=== PATIENT | male | born 1945 | race Caucasian/White ===

== ENCOUNTER 2016-07-03 06:25 | Outpatient (CLI) | payer MEDICARE, OTHER ==
[~2016-07-03] VITALS: Ht 185.4 cm; Wt 76.4 kg
--- NOTE | ~2016-07-03 | HEMODYNAMI ---
PATIENT:CARL FLORES MEDICAL RECORD: [id number] : 43 LOCATION:D.OPS ADMISSION DATE: 07/03/16 Generatedon:07/05/201611:01 Patient name: CARL FLORES Patient #: [id number] SSN: D OB: 1945 Date of study: 07/03/2016 Page: Of Hemodynamic Procedure Report Patient Data Patient Demographics Procedure consent was obtained First Name: CARL Gender: Male Last Name: SANDRA : 1945 Middle Initial: D Age: 71 year(s) Patient #: [id number] Race: Additional ID: [id number] Contact details [address]: [address] [place] [address] State: [place] City: [place] Zip code: [address] Past Medical History History of disease Date Diagnosis Comments CAD Peripheral vascular disease Allergies Allergen Reaction Date Comments Reported Other allergy 08/13/2014 Lisinopril Iodine 12/31/2014 Contrast 07/03/2016 Admission Admission Data Admission Date: 07/03/2016 Admission Time: 6:25 Weight (lbs.): 168 Weight (kg.): 76.2 Procedure Procedure Types Cath Procedure Peripheral Cath Diagnostic Procedure Procedure Description Procedure Date Procedure Date: 07/03/2016 Procedure Start Time: 10:01 Procedure Staff Name Function Teresa Miller RT Monitor Albert Wayne RT Scrub Karina Marks RN Nurse Bunny Powell MD Performing Physician Tami Phipps RT Monitor Procedure Data Cath Procedure Fluoroscopy Diagnostic fluoroscopy Total fluoroscopy Time: 8 time: 8 min min Diagnostic fluoroscopy Total fluoroscopy dose: dose: 1329.95 mGy 1329.95 mGy Contrast Material Contrast Material Type Amount (ml) Isovue 300 155 Entry Location Entry Primary Successful Side Size Upsize Upsize Entry Closure Succes sful Closure Location (Fr) 1 (Fr) 2 (Fr) Remarks Device Remarks Femoral Left 5 Fr artery Femoral Exoseal artery Procedure Medications Medication Administration Route Dosage Oxygen NC 3 l/min Heparin Flush Bag added to field 3 bags (1000units/500ml NS) Lidocaine 1% added to field 20 Versed I.V. 1 mg Fentanyl I.V. 50 mcg Versed I.V. 1 mg Fentanyl I.V. 50 mcg Heparin Bolus I.V. 5000 units Versed I.V. 0.5 mg Fentanyl I.V. 25 mcg Heparin Bolus I.V. 2000 units Hemodynamics Rest Heart Rate: 73 (bpm) Snapshots Pre Cath Intra NCS Post Cath Vital Signs Time Heart Resp SPO2 NIBP (mmHg) Rhythm Pain Sedation Rate (ipm) (%) Status Level (bpm) 9:34:40 73 16 100 144/74(120) NSR 0 (11) 10(A) , No pain 9:38:52 77 17 100 153/86(121) NSR 0 (11) 10(A) , No pain 9:43:10 81 17 100 139/77(104) NSR 0 (11) 10(A) , No pain 9:47:22 82 18 100 142/78(106) NSR 0 (11) 10(A) , No pain 9:51:38 79 18 100 156/75(150) NSR 0 (11) 10(A) , No pain 9:55:54 77 15 100 136/73(100) NSR 0 (11) 10(A) , No pain 10:00:06 84 23 99 124/77(97) NSR 0 (11) 10(A) , No pain 10:04:14 72 17 100 133/76(106) NSR 0 (11) 9(A) , No pain 10:08:24 78 18 100 135/78(111) NSR 0 (11) 9(A) , No pain 10:12:36 77 19 100 131/75(99) NSR 0 (11) 9(A) , No pain 10:16:46 74 18 99 131/73(93) NSR 0 (11) 9(A) , No pain 10:20:58 84 20 100 135/70(92) NSR 0 (11) 9(A) , No pain 10:25:08 79 18 100 127/78(101) NSR 0 (11) 9(A) , No pain 10:29:18 80 19 100 136/70(107) NSR 0 (11) 9(A) , No pain 10:33:30 77 19 100 134/77(99) NSR 0 (11) 9(A) , No pain 10:37:42 79 19 100 131/73(97) NSR 0 (11) 9(A) , No pain 10:41:51 76 19 100 134/75(95) NSR 0 (11) 9(A) , No pain 10:46:05 75 18 100 133/68(97) NSR 0 (11) 9(A) , No pain 10:50:15 84 17 99 134/75(97) NSR 0 (11) 9(A) , No pain 10:54:25 78 19 100 132/81(104) NSR 0 (11) 9(A) , No pain 10:58:37 83 18 99 133/73(108) NSR 0 (11) 9(A) , No pain 11:02:47 73 19 99 134/74(102) NSR 0 (11) 9(A) , No pain 11:06:59 77 17 100 135/74(107) NSR 0 (11) 9(A) , No pain 11:11:11 80 18 100 131/74(101) NSR 0 (11) 9(A) , No pain 11:15:21 73 19 100 133/73(111) NSR 0 (11) 9(A) , No pain 11:19:33 75 18 100 127/75(100) NSR 0 (11) 9(A) , No pain 11:23:40 83 19 100 138/75(101) NSR 0 (11) 9(A) , No pain 11:27:50 84 18 100 142/83(118) NSR 0 (11) 9(A) , No pain 11:32:00 81 18 100 148/91(113) NSR 0 (11) 9(A) , No pain 11:36:14 85 11 100 160/81(123) NSR 0 (11) 9(A) , No pain Medications Time Medication Route Dose Verified Delivered Reason Notes Effe ctiveness by by 9:45:16 Oxygen NC 3 Karina Karina used for l/min Selina Selina radar systems engineer RN 9:45:28 Heparin Flush added 3 Karina Karina used for Bag to bags Selina Selina procedure (1000units/500ml field RN RN NS) 9:45:36 Lidocaine 1% added 20ml Karina Karina used for to vial Selina Selina procedure field RN RN 10:02:26 Versed I.V. 1 mg Karina Karina for Selina Selina sedation RN RN 10:02:32 Fentanyl I.V. 50 Karina Karina for mcg Selina Selina sedation RN RN 10:08:23 Versed I.V. 1 mg Karina Karina for Selina Selina sedation RN RN 10:08:31 Fentanyl I.V. 50 Karina Karina for mcg Selina Selina sedation RN RN 10:31:47 Heparin Bolus I.V. 5000 Karina Karina Per units Selina Selina physician RN RN 10:54:47 Versed I.V. 0.5 Karina Karina for mg Selina Selina sedation RN RN 10:54:52 Fentanyl I.V. 25 Karina Karina for mcg Selina Selina sedation RN RN 11:15:29 Heparin Bolus I.V. 2000 Karina Karina Per units Selina Selina physician RN special client bus driver Log Time Note 9:24:03 Patient Weight : 168 lbs 9:24:54 Time tracking: Regular hours 9:25:03 Plan of Care:Hemodynamics will remain stable., Cardiac rhythm will remain stable., Comfort level will be maintained., Respiratory function will remain adequate., Patient/ family verbilizes understanding of procedure., Procedure tolerated without complication., Recovers from procedure without complications.. 9:25:11 Patient received from Outpatients to IR Alert and oriented. Tansferred to table in Supine position. 9:25:14 Correct patient and procedure confirmed by team. 9:25:18 Signed procedure consent form obtained from patient. 9:25:20 - 9:25:40 H&P Date Dictated: 07/03/2016 Within 30 days and on chart.. 9:26:49 Pre-procedure instructions explained to patient. 9:26:50 Pre-procedure instructions explained to patient. 9:26:52 Family in waiting room. 9:26:54 Patient NPO since Midnight. 9:27:05 Patient allergic to Contrast 9:27:18 Is the patient allergic to Iodine/contrast media? Yes. 9:27:24 Was the patient premedicated? Yes 9:27:29 Is patient on blood thinner?Yes 9:27:47 ACC The patient was administered the following blood thiners within the last 24 hours: ACCEffient 9:27:55 Patient diabetic? No. 9:28:00 - 9:28:01 ----Pre-sedation anethsthesia assessment.---- 9:28:05 Previous problem with sedation/anesthesia? No ? 9:28:25 Snore? Yes 9:28:28 Sleep apnea? No 9:28:32 Deviated septum? No 9:28:34 Opens mouth fully? Yes 9:28:36 Sticks out tongue? Yes 9:28:40 Airway obstruction? No ? 9:28:46 Dentures? Yes SECURED 9::57 Pre procedure: right dorsailis pedis pulse Doppler 9:29:01 Pre procedure: right posterior tibial pulse Doppler 9:29:05 Pre procedure: left dorsailis pedis pulse Doppler 9:29:11 Pre procedure: left posterior tibial pulse Doppler 9:29:23 IV patent on arrival in left forearm with 0.9% NaCl at KVO. 9:29:32 - 9:30:10 Use device set IR Diagnostic 9:30:23 Sterile Angiographic Pack opened to sterile field. 9:30:24 Bag Decanter opened to sterile field. 9:30:26 Acist Manifold opened to sterile field. :: Acist Hand Control opened to sterile field. :: Acist Syringe opened to sterile field. :32: Cook BENTSON 145cm guide wire opened to sterile field. 9:32:11 Micropuncture VSI 4FR kit opened to sterile field. 9:33:22 - : Vital chart was started : ECG and BP/O2 sat monitors applied to patient. : Baseline sample Acquired. : Full Disclosure recording started 9:33:31 - 9:45:16 Oxygen 3 l/min NC was given by Karina Marks RN; used for procedure; :45:28 Heparin Flush Bag (1000units/500ml NS) 3 bags added to field was given by Karina Marks RN; used for procedure; 9:45:36 Lidocaine 1% 20ml vial added to field was given by Karina Marks RN; used for procedure; 9:58:02 Physician arrived 10:00:44 --------ALL STOP TIME OUT------ 10:00:45 Final Timeout: patient, procedure, and site verified with staff and physician. All members of the team are in agreement. 10:01:19 Physical assessment completed. ASA score P 2 - A patient with mild systemic disease as per Bunny Powell MD. 10:01:25 Sedation plan: IV Moderate Sedation Versed, Fentanyl 10:01:37 Procedure started. 10:01:47 Local anesthetic to left femerol artery with Lidocaine 1% by Bunny Powell MD.INITIAL ACCESS ONLY 10:01:52 Arterial access obtained using ultrasound guidance. 10:02:26 Versed 1 mg I.V. was given by Karina Marks RN; for sedation; 10:02:32 Fentanyl 50 mcg I.V. was given by Karina Marks RN; for sedation; 10:03:38 [place] Sci Amplatz Super Stiff 75CM guide wire opened to sterile field. 10:03:39 Terumo TORQUE DEVICE PLASTIC .038 opened to sterile field. 10:03:40 Terumo ANGLE 180L glide wire opened to sterile field. 10:03:41 Terumo 5FR ANGLED 65CM glide catheter opened to sterile field. 10:04:33 A 5 Fr sheath was inserted into the Left Femoral artery 10:08:23 Versed 1 mg I.V. was given by Karina Marks RN; for sedation; 10:08:31 Fentanyl 50 mcg I.V. was given by Karina Marks RN; for sedation; 10:23:05 Cordis 6Fr Brite Tip 35cm Sheath opened to sterile field. 10:23:16 Cook GUILLORY 260 guide wire opened to sterile field. 10:25:14 Cordis SMART 9 X 40 X 120 stent was deployed across Undefined1 . 10:25:30 BasixTOUCH Inflation Syringe opened to sterile field. 10:31:47 Heparin Bolus 5000 units I.V. was given by Karina Marks RN; Per physician; 10:39:39 Inflation number: 1 A Cordis Powerflex Pro 8.0 x 40 x 80cm balloon was prepped and advanced across the Undefined1, then inflated to 12 OSWALD for 0:20 (min:sec). 10:47:06 Inflation number: 2 A Cordis Powerflex Pro 9.0 x 40 x 80cm balloon was prepped and advanced across the Undefined1, then inflated to 12 OSWALD for 0:20 (min:sec). 10:53:02 Inflation number: 3 A Cordis Powerflex Pro 9.0 x 40 x 80cm balloon was prepped and advanced across the Undefined1, then inflated to 12 OSWALD for 0:31 (min:sec). 10:54:47 Versed 0.5 mg I.V. was given by Karina Marks RN; for sedation; 10:54:52 Fentanyl 25 mcg I.V. was given by Karina Marks RN; for sedation; 11:06:15 Cordis SMART 10 X 40 X 120 stent was deployed across Undefined1 . 11:15:00 Inflation number: 4 A Cordis Powerflex Pro 9.0 x 40 x 80cm balloon was prepped and advanced across the Undefined1, then inflated to 12 OSWALD for 0:20 (min:sec). 11:15:29 Heparin Bolus 2000 units I.V. was given by Karina Marks RN; Per physician; 11:26:40 Cordis 6Fr Exoseal opened to sterile field. 11::54 Sheath removed intact; hemostasis achieved with Exoseal to the Femoral artery. 11:26:54 A sheath was inserted into the Femoral artery 11:30:34 Procedure ended.(Physican Out) 11:35:22 Fluoroscopy time 08.00 minutes. 11:35:33 Fluoroscopy dose: 1329.95 mGy 11:35:33 Flurop Dose total: 1329.95 11:35:40 Contrast amount:Isovue 300 155ml. 11:36:03 Procedure and supply charges have been captured, reviewed, submitted an d are correct. 11:38:56 Vital chart was stopped 11:39:01 Full Disclosure recording stopped Intervention Summary Intervention Notes Time ActionType Lesion and Equipment Action# Pressure Duration Attributes Used 10:25:14 Deploy self Undefined1 Cordis 1 expanding SMART 9 X stent 40 X 120 stent 10:39:39 Inflate Undefined1 Cordis 1 12 00:20 balloon Powerflex Pro 8.0 x 40 x 80cm balloon 10:47:06 Inflate Undefined1 Cordis 2 12 00:20 balloon Powerflex Pro 9.0 x 40 x 80cm balloon 10:53:02 Inflate Undefined1 Cordis 3 12 00:31 balloon Powerflex Pro 9.0 x 40 x 80cm balloon 11:06:15 Deploy self Undefined1 Cordis 1 expanding SMART 10 stent X 40 X 120 stent 11:15:00 Inflate Undefined1 Cordis 4 12 00:20 balloon Powerflex Pro 9.0 x 40 x 80cm balloon Device Usage Item Name Manufacture Quantity Catalog Hospital Part Current Minima l Lot# / Number Charge Number Stock Stock Serial# Code Sterile Cardinal 1 [id number] Angiographic Health Pack Bag Decanter Microtek 1 812568 19615 332450 [employer] ([employer] Acist Acist 1 74114 021357 027124 920958 5 Manifold Medical [employer] Inc Acist Hand Acist 1 01019 060902 795848 571850 5 Control Medical [employer] Inc Acist Syringe Acist 1 72096 937173 362034 402060 20 Medical Systems Inc Cook MANUEL [employer] 1 [id number] 001772 032608 5 [id number] 145cm guide wire Micropuncture VSI VASCULAR 1 [id number] 302237 541318 5 VSI 4FR kit SOLUTIONS [place] [employer] [place] 1 [id number] 449657 935238 598044 5 Amplatz Super Scientific Stiff 75CM guide wire Terumo TORQUE [place] 1 TD01 992358 845911 320448 5 DEVICE Scientific PLASTIC .038 Terumo ANGLE Terumo 1 [id number] 683083 475006 5 180L glide wire Terumo 5FR Terumo 1 CG507 245553 330469 5 ANGLED 65CM glide catheter Cordis 6Fr Cardinal 1 [id number] 381420 153972 738250 1 Brite Tip Health 35cm Sheath [facility] 1 [id number] 455270 815802 5 9237337 260 guide wire Cordis SMART Cardinal 1 [id number] 664083 691767 5 [id number] 9 X 40 X 120 Health stent BasixTOUCH Merit 1 [id number] 479496 073597 506458 5 Inflation Medical Syringe Cordis Cardinal 1 [id number] 838088 837207 890949 5 Powerflex Pro Health 8.0 x 40 x 80cm balloon Cordis Cardinal 3 [id number] 296457 168022 977120 5 Powerflex Pro Health 9.0 x 40 x 80cm balloon Cordis SMART Cardinal 1 [id number] 156886 727633 5 [id number] 10 X 40 X 120 Health stent Cordis 6Fr Cardinal 1 [id number] 711924 304186 560454 10 Exoseal Health Signature Audit [place] Stage Time Signature Unsigned Intra-Procedure 07/03/2016 Teresa Garrett Counts 11:38:53 AM RT(R) RT(R) 07/05/2016 11:00:32 AM Intra-Procedure 07/05/2016 Tami 11:01:43 AM Counts RT(R) Signatures Monitor : Teresa Miller RT Signature : Date : Time : Monitor : Tami Signature : Counts RT Date : Time : [address] [place] [address]
[~2016-07-03 06:25] MED LIST: ASPIRIN 81 MG E81 MG PO; BAYER CHEWABLE81 MG PO; CORDARONE200 MG PO; EFFIENT10 MG PO; FISH OIL 1,0001 CA1 PO; LITE COAT ASPI325 MG PO; NITROSTAT0.4 MG; NITROSTAT0.4 MG SL; NORVASC5 MG PO; PLAVIX75 MG PO; PREDNISONE20 MG; PREDNISONE20 MG PO; PRINIVIL20 MG PO; ZESTRIL40 MG PO
[2016-07-03] MEDS ORDERED: PREDNISONE50 MG PO ×2 (07:41→07:42)
[2016-07-03 07:48] VITALS: BP 119/76; Ht 185.4 cm; Wt 76.4 kg
--- NOTE | 2016-07-03 07:55 | NUR ---
SPOKE WITH ESSIE ERICKSON. INSTRUCTED TO GIVE PREDNISONE AND BENADRYL PER WRITTEN ORDERS AT THIS TIME. PT BROUGHT HOME SUPPLY OF BENADRYL SO HE WILL TAKE THIS.
[2016-07-03 07:57] LABS: CALC OSMOLALITY 280 mosm/kg (275-300); CALCIUM 9.3 mg/dL (8.5-10.1); CARBON DIOXIDE 24.5 mmol/L (21.0-32.0); CHLORIDE - SERUM 103 mmol/L (98-107); POTASSIUM - SERUM 4.4 mmol/L (3.5-5.1); SODIUM 136 mmol/L (136-145); UREA NITROGEN 21 mg/dL (7-18); eGFR NON AFRICAN AMERICAN 78 mL/min (90-120)
[2016-07-03 07:58] LABS: APTT 31.9 SECONDS (22.8-39.4); INR 1.08 (0.85-1.17); PROTIME 13.9 SECONDS (11.6-15.0)
[2016-07-03 07:59] LABS: GLUCOSE 200 mg/dL (74-106)
[2016-07-03 08:01] LABS: HEMOGLOBIN 13.8 g/dL (13.5-17.5); MCH 30.1 pg (26.0-34.0); MCHC 33.7 g/dL (31.0-37.0); MCV 89.5 fL (80.0-100.0); MEAN PLATELET VOLUME 10.3 fL (7.4-10.4); PLATELET COUNT 147 10x3/uL (130-400); RBC 4.58 10x6/uL (4.20-6.10); RDW 13.5 % (11.5-14.5); WBC 2.5 10x3/uL (4.8-10.8)
[2016-07-03 08:31] LABS: LYMPHOCYTES 28 % (15-50); NEUTROPHILS 67 % (40-80); PLATELET ESTIMATE NORMAL
--- NOTE | 2016-07-03 15:37 | NUR ---
PATIENT AMBULATES TO BATHROOM WITH STAND-BY ASSIST ONLY AND URINATES LARGE AMOUNT IN TOILET WITHOUT DIFFICULTY. LEFT GROIN DRESSING CONTINUES TO BE C/D/I, AREA SOFT, NONTENDER, NONEDEMATOUS. LEFT WRIST PIV DC'D WITH TIP INTACT, PATIENT DRESSING IN PERSONAL CLOTHES
--- NOTE | 2016-07-03 15:50 | NUR ---
LEFT GROIN AREA REASSESSED FOLLOWING PATIENT AMBULATING AND DRESSING. LEFT GROIN DRESSING CONTINUES TO BE C/D/I, AREA SOFT, NONTENDER,NONEDEMATOUS. DISCHARGE INSTRUCTIONS REVIEWED WITH PATIENT AND SPOUSE. DISCHARGED HOME VIA WHEELCHAIR TO PRIVATE VEHICLE WITH DAUGHTERS AND SPOUSE
== END 2016-07-03 15:50 | disposition home or self-care (01) ==
LOC: D.OPS 06:25 → D.RAD 09:00 → D.OPS 15:50
PROVIDERS: General Practice
DX: I77.72 Dissection of iliac artery (principal); I74.5 Embolism and thrombosis of iliac artery; Z91.041 Radiographic dye allergy status

== ENCOUNTER → 2016-07-24 10:22 | Outpatient (CLI) | payer MEDICARE, OTHER ==
[2016-07-03 07:48] VITALS: BMI 22.2
[~2016-07-24 10:22] MED LIST changes: +PREDNISONE50 MG PO
== END | disposition home or self-care (01) ==
LOC: D.CT 10:22
DX: Z98.890 Other specified postprocedural states (principal)

== ENCOUNTER 2017-06-09 14:57 | Emergency (ER) | payer MEDICARE, OTHER ==
[2016-07-03 07:48] VITALS: BMI 22.2
[2017-06-09 16:01] LABS: BASOPHILS 0.3 % (0-2); EOSINOPHILS 3.2 % (0-7); HEMATOCRIT 43.3 % (42.0-54.0); HEMOGLOBIN 14.6 g/dL (13.5-17.5); IMMATURE GRANULOCYTES 0.3 % (0-5); MCH 30.9 pg (26.0-34.0); MCHC 33.7 g/dL (31.0-37.0); MCV 91.7 fL (80.0-100.0); MEAN PLATELET VOLUME 10.4 fL (7.4-10.4); MONOCYTES 6.6 % (2-11); NEUTROPHILS 50.6 % (40-80); PLATELET COUNT 138 10x3/uL (130-400); RBC 4.72 10x6/uL (4.20-6.10); WBC 6.2 10x3/uL (4.8-10.8)
[2017-06-09 16:28] LABS: INR 1.08 (0.85-1.17); PROTIME 13.6 SECONDS (11.6-15.0)
[2017-06-09 16:56] LABS: ALBUMIN 3.9 g/dL (3.4-5.0); ALKALINE PHOSPHATASE 102 U/L (46-116); ALT (SGPT) 20 U/L (10-68); CALC OSMOLALITY 280 mosm/kg (275-300); CALCIUM 9.2 mg/dL (8.5-10.1); CARBON DIOXIDE 25.7 mmol/L (21.0-32.0); CHLORIDE - SERUM 102 mmol/L (98-107); CREATININE - SERUM 1.1 mg/dL (0.6-1.3); POTASSIUM - SERUM 4.2 mmol/L (3.5-5.1); PROTEIN - SERUM 7.6 g/dL (6.4-8.2); SODIUM 140 mmol/L (136-145); UREA NITROGEN 20 mg/dL (7-18); eGFR NON AFRICAN AMERICAN 70 mL/min (90-120)
[2017-06-09 17:07] LABS: CHOL - HDL RATIO 5.6 ratio (2.3-4.9); CHOLESTEROL, TOTAL 185 mg/dL (0-200); CKMB 0.8 U/L (0.0-3.6); CREATINE KINASE 51 UL (21-232); HDL CHOLESTEROL 33 mg/dL (32-96); LDL CHOLESTEROL 134 mg/dL (0-100); LDL-HDL RATIO 4.1 ratio (1.5-3.5); TRIGLYCERIDE 93 mg/dL (30-200); TROPONIN-I < 0.017 ng/mL (0.000-0.060)
[2017-06-09 17:09] LABS: GLUCOSE 85 mg/dL (74-106)
[2017-06-09 19:24] LABS: APPEARANCE CLEAR (CLEAR); BILIRUBIN NEGATIVE (NEGATIVE); COLOR DK YELLOW (YELLOW); GLUCOSE NEGATIVE (NEGATIVE); KETONE NEGATIVE (NEGATIVE); NITRITE NEGATIVE (NEGATIVE); PROTEIN NEGATIVE (NEGATIVE); UROBILINOGEN NORMAL (NORMAL)
[2017-06-09 19:26] LABS: BACTERIA FEW /hpf (NONE SEEN); RED CELLS - URINE 0-5 /hpf (0-5)
== END 2017-06-09 21:15 | disposition home or self-care (01) ==
LOC: D.ER 14:57
PROVIDERS: Emergency Medicine; Nurse Practitioner Family
DX: R07.9 Chest pain, unspecified (principal); I25.10 Atherosclerotic heart disease of native coronary artery without angina pectoris

== ENCOUNTER 2017-06-13 09:46 | Outpatient (CLI) | payer MEDICARE, OTHER ==
[~2017-06-13] VITALS: Ht 185.4 cm; Wt 75.0 kg
--- NOTE | ~2017-06-13 | OP ---
PATIENT NAME: CARL FLORES MEDICAL RECORD: [id number] :43 LOCATION:D.CAT ADMISSION DATE: SURGEON: NEELAM ZIEGLER MD DATE OF OPERATION: 06/13/2017 PROCEDURES: 1. Left heart catheterization. 2. Selective coronary angiography. 3. Vein graft angiography. 4. WERNER angiography. 5. Intravascular ultrasound. INDICATION: Chest pain compatible with angina and coronary artery disease. PROCEDURE IN DETAIL: After informed consent was obtained and after a detailed explanation of the risks, benefits as well as alternative therapies, the patient elected to proceed with angiogram and heart catheterization. The left femoral area was prepped and draped in normal sterile fashion. The left femoral artery was cannulated via modified Seldinger technique with placement of 6-Tristanian sheath. All catheters exchanged through this sheath. FINDINGS: The left ventriculogram was performed in the standard 30-degree JAUREGUI view, reveals good cardiac wall motion throughout all segments. Overall ejection fraction is 55% to 60%. 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 SELECTIVE CORONARY ANGIOGRAPHY: 1. Left main showed no significant angiographic disease. 2. Left anterior descending is greater than 80% stenosis in the mid vessel. 3. WERNER to the distal LAD is widely patent. 4. Left circumflex has previously placed stents, these are widely patent. 5. Right coronary has moderate irregularities, questionable stenosis at the ostium. This was found to be not at all hemodynamically significant by intravascular ultrasound. OVERALL IMPRESSION: Wide patency of the WERNER to the LAD. No disease elsewise. Continue medical management of the coronary artery disease and cardiac risk factors. TRANSINT:[id number] Voice Confirmation ID: [id number] DOCUMENT ID: [id number] NEELAM ZIEGLER MD at 1025 CC: [id number] DICTATION DATE: 06/13/17 1259 RENTAL CAR FERRY DRIVER: 06/13/17 1351 DEP CLI 06/13/17 [id number] [place] [address]
--- NOTE | ~2017-06-13 | HEMODYNAMI ---
PATIENT:CARL FLORES MEDICAL RECORD: [id number] : 43 LOCATION:D.CAT ADMISSION DATE: 06/13/17 Generatedon:06/13/201712:51 Patient name: CARL FLORES Patient #: [id number] SSN: D OB: 1945 Date of study: 06/13/2017 Page: Of Hemodynamic Procedure Report Patient Data Patient Demographics Procedure consent was obtained First Name: CARL Gender: Male Last Name: SANDRA : 1945 Middle Initial: D Age: 72 year(s) Patient #: [id number] Race: Additional ID: [id number] Contact details Address: [address] [place] [address] State: [place] City: [place] Zip code: [address] Past Medical History History of disease Date Diagnosis Comments CAD Peripheral vascular disease Allergies Allergen Reaction Date Comments Reported Other allergy 08/13/2014 Lisinopril Iodine 12/31/2014 Contrast 07/03/2016 IV contrast dye 06/13/2017 Other allergy 06/13/2017 lisinopril Admission Admission Data Admission Date: 06/13/2017 Admission Time: 9:46 Procedure Procedure Types Cath Procedure Diagnostic Procedure LHC LH w/Coronaries FFR/IVUS Intra-Coronary IVUS Initial Miscellaneous Procedures Moderate Sedation up to 45 minutes Peripheral Cath Diagnostic Procedure Cath Peripheral Resww-Cmttpym-Bej-Off Peripheral vascular Intervention Angioplasty Angioplasty Iliac Initial Procedure Description Procedure Date Procedure Date: 06/13/2017 Procedure Start Time: 12:05 Procedure End Time: 12:51 Procedure Staff Name Function Yousuf Valiente MD Performing Physician Tami Phipps RT Monitor Katerine Hinton RT Scrub Juventino Hill RN Nurse Procedure Data Cath Procedure Fluoroscopy Diagnostic fluoroscopy Total fluoroscopy Time: time: 15.1 min 15.1 min Diagnostic fluoroscopy Total fluoroscopy dose: dose: 1301 mGy 1301 mGy Contrast Material Contrast Material Type Amount (ml) Isovue 300 209 Entry Location Entry Primary Successful Side Size Upsize 1 Upsize Entry Closure Successful Closure Location (Fr) (Fr) 2 (Fr) Remarks Device Remarks Radial Right 6 Fr Mechanical artery Short Compressio n Femoral Left 6 Fr 6 Fr 6 Fr Exoseal artery Short Mid-Length Short Estimated blood loss: 10 ml Diagnostic catheters Device Type Used For End Catheter Placement DIAGNOSTIC Fernanda Garnica Abdominal 125cm 5Fr catheter aortogram with ([id number]) runoff DIAGNOSTIC JB3 4Fr Internal mammary catheter (071477) arteriography MULTIPACK Pigtail 5 Fr LV Angiography catheter MULTIPACK JL 4.0 5Fr Left Coronary catheter Angiography MULTIPACK 3DRC 5Fr Internal mammary catheter arteriography MULTIPACK 3DRC 5Fr Right Coronary catheter Angiography Procedure Complications No complications Procedure Medications Medication Administration Route Dosage 0.9% NaCl I.V. 100 ml/hr Oxygen NC 2 l/min Heparin Flush Bag added to field 2 bags (1000units/500ml NS) Lidocaine 2% added to field 20 Radial Cocktail added to field 1 syringe (Verapomil 2mg/Nitro 400mcg/Heparin 1500units) Versed I.V. 1 mg Fentanyl I.V. 50 mcg Radial Cocktail I.A. 1 syringe (Verapomil 2mg/Nitro 400mcg/Heparin 1500units) Versed I.V. 1 mg Fentanyl I.V. 50 mcg Heparin Bolus I.V. 4000 units Hemodynamics Rest Heart Rate: 75 (bpm) Snapshots Pre Cath Intra NCS Post Cath Vital Signs Time Heart Resp SPO2 etCO2 NIBP (mmHg) Rhythm Pain Sedation Rate (ipm) (%) (mmHg) Status Level (bpm) 11:49:59 81 19 100 30.4 130/74(101) NSR 0 (11) 10(A) , No pain 11:54:39 78 17 99 33.4 120/66(92) NSR 0 (11) 10(A) , No pain 12:03:58 76 15 99 33.4 126/70(102) NSR 0 (11) 10(A) , No pain 12:08:37 81 16 98 25.8 107/54(80) NSR 0 (11) 10(A) , No pain 12:13:13 77 15 97 28.8 114/54(87) NSR 0 (11) 10(A) , No pain 12:17:50 69 16 99 30.3 124/62(89) NSR 0 (11) 10(A) , No pain 12:22:29 75 16 99 24.3 116/54(96) NSR 0 (11) 9(A) , No pain 12:27:07 81 13 98 26.5 112/55(79) NSR 0 (11) 9(A) , No pain 12:31:43 77 14 97 35.7 111/57(87) NSR 0 (11) 9(A) , No pain 12:36:20 79 15 97 10.6 110/56(77) NSR 0 (11) 9(A) , No pain 12:40:57 76 15 98 32.6 113/56(78) NSR 0 (11) 9(A) , No pain 12:45:33 82 14 98 30.3 124/64(87) NSR 0 (11) 10(A) , No pain 12:50:09 81 14 99 31.8 123/72(94) NSR 0 (11) 10(A) , No pain Medications Time Medication Route Dose Verified Delivered Reason Note s Effectiveness by by 11:48:20 0.9% NaCl I.V. 100 Juventino Juventino Per physician ml/hr Liz Hill RN RN 11:48:34 Oxygen NC 2 l/min Juventino Juventino Per physician Liz Hill RN RN 11:48:45 Heparin Flush added 2 bags Juventino Juventino used for Bag to Liz Hill procedure (1000units/500ml field FOUNTAIN RN NS) 11:48:59 Lidocaine 2% added 20ml Juventino Juventino for local to vial Delisaigan Liz anesthetic field FOUNTAIN RN 12:00:15 Radial Cocktail added 1 Juventino Juventino used for (Verapomil to syringe Liz Hill procedure 2mg/Nitro field FOUNTAIN RN 400mcg/Heparin 1500units) 12:06:10 Versed I.V. 1 mg Juventino Juventino for sedation Liz Hill RN RN 12:06:22 Fentanyl I.V. 50 mcg Juventino Juventino for sedation Liz Hill RN RN 12:06:58 Radial Cocktail I.A. 1 Juventino Yousuf used for (Verapomil syringe Liz Valiente MD procedure 2mg/Nitro RN 400mcg/Heparin 1500units) 12:18:28 Versed I.V. 1 mg Juventino Yousuf for sedation Lorigan Tauth MD RN 12:18:34 Fentanyl I.V. 50 mcg Juventino To for sedation Liz Valiente MD RN 12:30:56 Heparin Bolus I.V. 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 11:30:45 Juventino Hill RN sent for patient. Start room use. 11:40:33 Patient received from Pre/Post Procedure Room to CCL 1 Alert and oriented. Tansferred to table in Supine position. 11:48:20 0.9% NaCl 100 ml/hr I.V. was administered by Juventino Hill RN; Per physician; 11:48:34 Oxygen 2 l/min NC was administered by Juventino Hill RN; Per physician; 11:48:45 Heparin Flush Bag (1000units/500ml NS) 2 bags added to field was administered by Juventino Hill RN; used for procedure; 11:48:59 Lidocaine 2% 20ml vial added to field was administered by Juventino Hill RN; for local anesthetic; 11:49:09 Vital chart was started 11:49:40 Warm blankets applied, and karishma hugger turned on for patient comfort. 11:49:41 Correct patient and procedure confirmed by team. 11:49:42 Signed procedure consent form obtained from patient. 11:49:43 ECG and BP/O2 sat monitors applied to patient. 11:49:45 Rhythm: sinus rhythm 11:49:47 Full Disclosure recording started 11:50:07 H&P Date Dictated: 06/12/2017 Within 30 days and on chart., H&P Addendum completed by physician on day of procedure. (MUST COMPLETE FOR ALL OUTPATIENTS). 11:50:08 Pre-procedure instructions explained to patient. 11:50:09 Pre-op teaching completed and patient verbalized understanding. 11:50:10 Family in waiting room. 11:50:11 Patient NPO since Midnight. 11:50:23 Patient allergic to IV contrast dye 11:50:33 Patient allergic to Other allergylisinopril 11:50:36 Is the patient allergic to Iodine/contrast media? No. 11:50:39 Is patient on blood thinner?Yes 11:50:43 ACC The patient was administered the following blood thiners within the last 24 hours: ACCEffient 11:50:45 Patient diabetic? No. 11:51:04 Previous problem with sedation/anesthesia? No ? 11:51:06 Snore? Yes 11:51:07 Sleep apnea? No 11:51:09 Deviated septum? No 11:51:10 Opens mouth fully? Yes 11:51:11 Sticks out tongue? Yes 11:51:13 Airway obstruction? No ? 11:51:16 Dentures? Yes In 11:51:32 Pre procedure: left dorsailis pedis pulse 2+ Normal; easily identifiable; not easily obliterated 11:51:36 Pre procedure: right dorsailis pedis pulse 2+ Normal; easily identifiable; not easily obliterated 11:51:38 Patient pain scale 0/10 ?. 11:51:43 IV patent on arrival in left hand with 0.9% NaCl at [facility]. 11:51:46 Lab results completed and on chart. 11:51:56 Bilateral groins area was prepped with chlora-prep and draped in sterile fashion 11:51:58 Alarms reviewed by R. N. 11:51:58 Sharps counted by scrub and verified by R.N. 11:52:02 Use device set Femoral Dx 11:52:03 ACIST Syringe (64786) opened to sterile field. 11:52:04 Bag Decanter (2002S) opened to sterile field. 11:52:05 Medline Cath Pack ([id number]) opened to sterile field. 11:52:06 SHEATH 5FR Sixes (ETC996) opened to sterile field. 11:52:06 DIAGNOSTIC WIRE .035 260cm J wire (473095) opened to sterile field. 11:52:08 ACIST Hand Control (14108) opened to sterile field. 11:52:09 ACIST Manifold (78689) opened to sterile field. 11:52:09 DIAGNOSTIC Multipack 5Fr catheter set (XQ2849) opened to sterile field. 11:52:10 Tegaderm 4 x 4 (1626W) opened to sterile field. 11:52:10 PERCUTANEOUS ENTRY 19GA needle opened to sterile field. 11:54:50 Physician paged 11:54:55 Zero performed for pressure channel P1 11:55:47 Baseline sample Acquired. 12:00:15 Radial Cocktail (Verapomil 2mg/Nitro 400mcg/Heparin 1500units) 1 syringe added to field was administered by Juventino Hill RN; used for procedure; 12:01:47 Right Radial area was prepped with chlora-prep and draped in sterile fashion 12:02:10 MBrace Wrist Support ([id number]) opened to sterile field. 12:02:10 SHEATH 6FR Slender ([id number]) opened to sterile field. 12:03:06 Final Timeout: patient, procedure, and site verified with staff and physician. All members of the team are in agreement. 12:03:10 Right Radial site verified by team. 12:03:13 Physical assessment completed. ASA score P 2 - A patient with mild systemic disease as per Yousuf Valiente MD. 12:03:19 Sedation plan: IV Moderate Sedation Medication:Versed, Fentanyl 12:05:11 Procedure started. 12:05:26 Local anesthetic to right radial artery with Lidocaine 2% by Yousuf Valiente MD.INITIAL ACCESS ONLY 12:06:10 Versed 1 mg I.V. was administered by Juventino Hill RN; for sedation; 12:06:12 A 6 Fr Short sheath was inserted into the Right Radial artery 12:06:22 Fentanyl 50 mcg I.V. was administered by Juventino Hill RN; for sedation; 12:06:58 Radial Cocktail (Verapomil 2mg/Nitro 400mcg/Heparin 1500units) 1 syringe I.A. was administered by Yousuf Valiente MD; used for procedure; 12:07:24 A DIAGNOSTIC Aqua Garnica 125cm 5Fr catheter ([id number]) was advanced over the wire and used for Abdominal aortogram with runoff. 12:13:06 GLIDE WIRE Super Stiff Angled 260cm (RT0867) opened to sterile field. 12:13:07 TORQUE DEVICE PLASTIC .038 ( TD01) opened to sterile field. 12:13:10 INFLATOR Merit BasixCompak (AM3099) opened to sterile field. 12:13:20 [place] wire advanced. 12:13:21 Catheter exchanged over wire. 12:13:34 A DIAGNOSTIC JB3 4Fr catheter (609628) was advanced over the wire and used for Internal mammary arteriography.to LAD 12:15:02 Catheter removed. 12:15:20 SHEATH 6FR Sixes (ANJ498) opened to sterile field. 12:15:59 Local anesthetic to left femerol artery with Lidocaine 2% by Yousuf Valiente MD.ADDITIONAL ACCESS 12:18:28 Versed 1 mg I.V. was administered by Yousuf Valiente MD; for sedation; 12:18:34 Fentanyl 50 mcg I.V. was administered by Yousuf Valiente MD; for sedation; 12:19:36 A 6 Fr Short sheath was inserted into the Left Femoral artery 12:19:43 [place] wire advanced. 12:20:13 SHEATH 6FR Brite Tip 35cm (852924D) opened to sterile field. 12:21:54 Sheath upsized to a 6 Fr Mid-Length. 12:22:11 A MULTIPACK Pigtail 5 Fr catheter was advanced over the wire and used for LV Angiography. 12:22:51 LV gram done using JAUREGUI 12::54 Injector settings: Ml/sec: 10, Volume: 20, 12:23:08 EF : 50 % 12:23:17 Catheter removed. 12:24:12 A MULTIPACK JL 4.0 5Fr catheter was advanced over the wire and used for Left Coronary Angiography. 12:26:02 Catheter removed. 12:27:03 A MULTIPACK 3DRC 5Fr catheter was advanced over the wire and used for Internal mammary arteriography.to LAD 12:27:51 A MULTIPACK 3DRC 5Fr catheter was advanced over the wire and used for Right Coronary Angiography. 12:28:24 Catheter removed. 12:28:36 GUIDE 6FR 3DRC SH catheter ([id number]) opened to sterile field. 12:29:46 Moffit [place] IVUS Catheter (73440J) opened to sterile field. 12:30:12 CHOICE PT Extra Support 182cm wire ([id number]) opened to sterile field. 12:30:56 Heparin Bolus 4000 units I.V. was administered by Yousuf Valiente MD; for anticoagulation; 12:31:28 6 Fr 3DRC SH guide catheter was inserted over the wire 12:31:41 Choice PT ES wire advanced. 12:31:45 IVUS catheter advanced over wire. 12:31:47 IVUS pass to RCA lesion performed. 12:32:31 IVUS catheter removed over wire. 12:32:39 Wire removed. 12:32:39 Guide catheter removed. 12:32:46 GUIDE 6FR XBLAD 3.5 catheter (12666274) opened to sterile field. 12:32:54 6 Fr XBLAD 3.5 guide catheter was inserted over the wire 12:33:06 Choice PT ES wire advanced. 12:35:20 IVUS catheter advanced over wire. 12:36:37 IVUS pass to Circ lesion performed. 12:36:54 unable to advance IVUS down Circ 12:37:02 IVUS catheter removed over wire. 12:37:06 Wire removed. 12:37:15 WHISPER 190cm wire ([id number]) opened to sterile field. 12:37:33 Whisper wire advanced. 12:40:04 Wire removed. unable to cross lesion. 12:40:12 Guide catheter removed. 12:40:39 Proceding to Lt Iliac intervention. 12:43:05 Inflation number: 1 A POWERFLEX PRO 7.0 x 20 x 135 cm balloon ([id number]) was prepped and advanced across the Ostial Common Iliac, Left, then inflated to 13 OSWALD for 0:37 (min:sec). 12:43:43 Balloon removed over the wire. 12:43:58 Sheath upsized to a 6 Fr Short. 12:44:14 Sheath removed intact; hemostasis achieved with Exoseal to the Left Femoral artery. 12:44:23 Sheath removed intact; hemostasis achieved with Mechanical Compression to the Right Radial artery. 12:44:25 Procedure ended.(Physican Out) 12:44:35 TR BAND Standard (GXY26NKW) opened to sterile field. 12:44:36 EXOSEAL 6Fr (EX600) opened to sterile field. 12:44:42 Fluoroscopy time 15.10 minutes. 12:44:46 Flurop Dose total: 1301 12:44:46 Fluoroscopy dose: 1301 mGy 12:45:08 Contrast amount:Isovue 300 209ml. 12:45:10 Sharps counted by scrub and verified by R.N. 12:45:12 TR band inflated with 12cc of air. 12:45:13 Insertion/operative site no bleeding no hematoma. 12:45:16 Post-op/insertion site Left Femoral artery dressed using a 4 x 4 and Tegaderm. 12:45:20 Post left femerol artery:stable, clean and dry 12:45:26 Post right radial artery:stable, clean and dry 12:45:27 Post Procedure Pulses reassessed and unchanged 12:45:29 Post-procedure physical assessment completed. ASA score P 2 - A patient with mild systemic disease as per Yousuf Valiente MD. 12:45:31 Post procedure rhythm: unchanged. 12:45:38 Estimated blood loss: 10 ml 12:45:40 Post procedure instruction explained to patient.Patient verbalizes understanding. 12:45:40 Patient needs reinforcement of post procedure teaching. 12:46:08 Procedure type changed to Cath procedure, Diagnostic procedure, LHC, LHC w/Coronaries, FFR/IVUS, Intra-Coronary IVUS Initial, Miscellaneous Procedures, Moderate Sedation up to 45 minutes, Peripheral Cath Diagnostic Procedure, Cath Peripheral, Mdcxx-Ihrzubb-Oep-Off, Peripheral vascular Intervention, Angioplasty, Angioplasty Iliac Initial 12:48:58 Tegaderm 4 x 4 (1626W) opened to sterile field. 12:49:34 Procedure Complication : No complications 12:49:36 Procedure and supply charges have been captured, reviewed, submitted and are correct. 12:49:38 See physician's report for complete and final results. 12:51:05 Vital chart was stopped 12:51:08 Report given to Pre/Post Procedure Room. 12:51:14 Patient transfered to Pre/Post Procedure Room with Stretcher. 12:51:23 Procedure ended. 12:51:23 Full Disclosure recording stopped 12:51:26 End room use (Document Last) Intervention Summary Intervention Notes Time ActionType Lesion and Equipment Action# Pressure Duration Attributes Used 12:43:05 Inflate Ostial POWERFLEX 1 13 00:38 balloon Common PRO 7.0 x Iliac, Left 20 x 135 cm balloon ([id number]) Device Usage Item Name Manufacture Quantity Catalog Number Hospital Part Current Mini mal Lot# / Charge Number Stock Stock Serial# Code ACIST Acist 1 54074 930585 659671 823487 20 Syringe NorSun (23789) Systems Inc Bag Decanter Microtek 1 226995 51067 164363 5 () Medical Inc. Medline Cath Cardinal 1 [id number] 707187 43615 143962 5 StreamOcean ([id number]) SHEATH 5FR Terumo 1 PYO027 480242 898229 983100 40 Sixes (TGH982) DIAGNOSTIC [facility] 1 571645 575305 951677 275738 30 WIRE .035 260cm J wire (872223) ACIST Hand Acist 1 30266 924338 540407 761906 5 Control Medical (53696) Systems Inc ACIST Acist 1 44298 405007 916987 151569 5 Manifold Medical (36144) Systems Inc DIAGNOSTIC Cardinal 1 EN2515 299946 53524 835633 30 Multipack Health 5Fr catheter set (BT6279) Tegaderm 4 x 3M 2 1626W 159545 936489 788584 5 4 (1626W) PERCUTANEOUS [facility] 1 J16121 955128 054991 5 ENTRY 19GA needle MBrace Wrist Advanced 1 140-0250-00 171418 08464 155282 5 Support Vascular (927046343) Dynamics SHEATH 6FR Terumo 1 [id number] 185535 744214 963139 40 Slender (XLNM2D57NN) DIAGNOSTIC Cardinal 1 OWS8033 615551 199093 586600 5 ZUCHEM [facility] 125cm 5Fr catheter (AWC5607) GLIDE WIRE Terumo 1 DC4594 274078 171103 673555 5 Super Stiff Angled 260cm (MP2522) TORQUE [place] 1 TD01 760941 462739 569084 5 DEVICE Scientific PLASTIC .038 ( TD01) INFLATOR Merit 1 XR2768 453924 758973 445821 15 [facility] Medical BasixCompak (VN0574) DIAGNOSTIC Cardinal 1 532-438 366717 097166 075787 5 JB3 4Fr Health catheter (710608) SHEATH 6FR Terumo 1 ERI415 986347 669978 302734 40 Sixes (YMP452) SHEATH 6FR Cardinal 1 009585D 635095 718284 173352 1 Brite Tip Health 35cm (352688F) MULTIPACK Cardinal 1 228955 5 Pigtail 5 Fr Health catheter MULTIPACK JL Cardinal 1 565980 5 4.0 5Fr Health catheter MULTIPACK Cardinal 1 413317 5 3DRC 5Fr Health catheter GUIDE 6FR Medtronic 1 [id number] 443481 678708 449686 1 3DRC SH catheter (EA43LHRKS) Moffit Moffit 1 43337M 611570 512827 004221 8 [place] IVUS Catheter (86931A) CHOICE PT [place] 1 [id number] 157152 402316 619428 5 Extra Scientific Support 182cm wire (7998399W7) GUIDE 6FR Cardinal 1 98909533 334957 659240 607121 10 XBLAD 3.5 Health catheter (26191783) WHISPER Ott 1 [id number] 261581 500895 586306 5 190cm wire Vascular (6283381TM) POWERFLEX Cardinal 1 [id number] 251302 218092 930354 5 PRO 7.0 x 20 Health x 135 cm balloon (7482990K) TR BAND Terumo 1 KWM12-KGV 450808 727626 496775 40 Standard (AEF22EJB) EXOSEAL 6Fr Cardinal 1 EX600 244111 746601 493066 10 (EX600) Health Signature Audit [place] Stage Time Signature Unsigned Intra-Procedure 06/13/2017 Tami 12:51:37 PM Counts RT(R) Signatures Monitor : Tami Signature : Counts RT Date : Time : [place] [id number] [place] [address]
--- NOTE | ~2017-06-13 | OP ---
PATIENT NAME: CARL FLORES MEDICAL RECORD: [id number] :43 LOCATION:D.CAT ADMISSION DATE: SURGEON: NEELAM ZIEGLER MD DATE OF OPERATION: 06/13/2017 PROCEDURES: 1. PIGMENT SUPPLIER, iliac, left. 2. Aortofemoral runoff. 3. Abdominal aortography. INDICATION: Claudication and peripheral vascular disease. PROCEDURE IN DETAIL: After informed consent was obtained and after detailed explanation of risks, benefits as well as alternative therapies, the patient elected to proceed with angiogram and angioplasty. FINDINGS: Abdominal aortography was performed. The catheter was pulled down for aortofemoral runoff. Abdominal aortography reveals no significant abdominal aortic disease. No dissection or aneurysm formation. RIGHT LE. The common iliac is totally occluded. The external iliac is totally occluded. 2. There is a femoral-femoral crossover graft hitting the common femoral, the common femoral is widely patent. The remainder of the femoral system is widely patent. 3. Popliteal and infrapopliteal vessels were widely patent giving good 3-vessel runoff to the foot. LEFT LE. The common iliac has previously placed stent with at least 70% in-stent restenosis at the ostium. Otherwise, iliacs have moderate irregularities, but no flow-limiting stenosis. 2. Femoral system has mild irregularities, but no flow-limiting stenosis. 3. Popliteal and infrapopliteal vessels are widely patent. PROCEDURE: PIGMENT SUPPLIER of the left common iliac. Balloon used was a 7 x 20 balloon, 2 inflations were made up to 13 atmospheres. Result was 0% residual stenosis. OVERALL IMPRESSION: Successful percutaneous transluminal coronary angioplasty for in-stent restenosis of the left common iliac going from 70% initial stenosis to 0% residual. TRANSINT:[id number] Voice Confirmation ID: [id number] DOCUMENT ID: [id number] NEELMA ZIEGLER MD at 1025 CC: [id number] DICTATION DATE: 06/13/17 1251 LAUNDROMAT WORKER: 06/13/17 1600 DEP CLI 06/13/[address] [address]
[2017-06-13 10:14] VITALS: BP 132/54; Ht 185.4 cm; Wt 75.0 kg
[2017-06-13] MEDS ORDERED: ISOSORBIDE MONO30 M1 PO (13:00)
== END 2017-06-13 17:15 | disposition home or self-care (01) ==
LOC: D.CATH 09:46
DX: I25.119 Atherosclerotic heart disease of native coronary artery with unspecified angina pectoris (principal); Z95.1 Presence of aortocoronary bypass graft; I70.212 Atherosclerosis of native arteries of extremities with intermittent claudication, left leg; Z01.812 Encounter for preprocedural laboratory examination

== ENCOUNTER → 2017-07-09 08:13 | Outpatient (CLI) | payer MEDICARE, OTHER ==
[2017-06-13 10:14] VITALS: BMI 21.8
[~2017-07-09 08:13] MED LIST changes: +ISOSORBIDE MONO30 M1 PO
== END | disposition home or self-care (01) ==
LOC: D.US 08:13
DX: I71.4 Abdominal aortic aneurysm, without rupture (principal)

== ENCOUNTER 2018-02-20 05:40 | Day surgery (SDC) | payer MEDICARE, OTHER ==
[~2018-02-20] VITALS: Ht 185.4 cm; Wt 74.8 kg
--- NOTE | ~2018-02-20 | OP ---
PATIENT NAME: CARL FLORES MEDICAL RECORD: [id number] :43 [facility] AD[facility] DATE: SURGEON: ERIC VARGAS MD DATE OF OPERATION: 02/20/2018 PREOPERATIVE DIAGNOSIS: Lumbar spinal stenosis L3-L4, L4-L5. POSTOPERATIVE DIAGNOSES: Lumbar spinal stenosis L3-L4, lujd-ss-qzggdwfz L4-L5, mwkrcqdh-ke-lwlmjx L5-S1 with foraminal stenosis severe. PROCEDURES: Lumbar laminotomy, medial facetectomy and foraminotomy at L3-L4, L4-L5, and L5-S1 right with METRx retractor. DESCRIPTION AND TECHNIQUE: After induction of general endotracheal anesthesia, the patient was rolled prone on Shaw frame. Lumbar spine was prepped and draped in usual sterile fashion. Fluoroscopic x-ray and spinal needle localized the L3-L4 interspace on the right side. A stab incision was created with #11 blade. Series of dilators were used to advance a METRx retractor to the L3-L4 interspace on the right side. A microscope and Midas Howard drill were used to perform laminotomy, medial facetectomy and foraminotomy at L3-L4 on the right. There was mild spinal stenosis at this level, only inferior portion at this level was performed. The retractor was wanded down to the L4-L5 interspace. A medial facetectomy was carried out. This was redo facetectomy. The previous laminotomy was extended with Cloward rongeurs. The L5 nerve root was followed around the L5 pedicle in the L5-S1 foramen. Following this, the L4 and L5 nerve roots were completely decompressed. Meticulous hemostasis was maintained throughout and wound was irrigated with copious amounts of Ancef irrigant solution. The fascia was closed with 2-0 Vicryl suture. Subdermal layer was closed with 3-0 Vicryl suture. The skin was reapproximated with Steri-Strips and benzoin. A sterile dressing was applied to the wound. The patient was awakened in good condition and taken to recovery. All counts were reported as correct. Estimated blood loss was minimal. TRANSINT:[id number] Voice Confirmation ID: [id number] DOCUMENT ID: [id number] ERIC VARGAS MD at 0933 CC: [id number] DICTATION DATE: 02/20/18 0938 TOOL SETTER: 02/20/18 0950 [facility] [place] 02/20/18 [facility] [address] [facility] [place] [address]
[~2018-02-20 05:40] MED LIST changes: +LEVOTHYROXINE50 MCG PO
[2018-02-20 06:06] LABS: HEMATOCRIT 40.6 % (42.0-54.0); HEMOGLOBIN 14.2 g/dL (13.5-17.5); MCH 31.7 pg (26.0-34.0); MCV 90.6 fL (80.0-100.0); MEAN PLATELET VOLUME 9.4 fL (7.4-10.4); RBC 4.48 10x6/uL (4.20-6.10); WBC 4.5 10x3/uL (4.8-10.8)
[2018-02-20 06:39] VITALS: BP 136/65; Ht 185.4 cm; Wt 74.8 kg
[2018-02-20] MEDS ORDERED: NORCO 10-325 TA1 TAB PO (09:34)
== END 2018-02-20 12:00 | disposition home or self-care (01) ==
LOC: D.OPS 05:40
PROVIDERS: Anesthesiology
DX: M48.061 Spinal stenosis, lumbar region without neurogenic claudication (principal); M48.07 Spinal stenosis, lumbosacral region; Z01.812 Encounter for preprocedural laboratory examination

== ENCOUNTER 2018-03-01 16:01 | Observation (INO) | payer MEDICARE, OTHER ==
[~2018-03-01] VITALS: Ht 185.4 cm; Wt 75.1 kg
[~2018-03-01 16:01] MED LIST changes: +NORCO 10-325 TA1 TAB PO
[2018-03-01 19:17] LABS: BASOPHILS 0 % (0-2); EOSINOPHILS 0 % (0-7); HEMATOCRIT 36.6 % (42.0-54.0); HEMOGLOBIN 12.7 g/dL (13.5-17.5); IMMATURE GRANULOCYTES 0.2 % (0-5); LYMPHOCYTES 34.7 % (15-50); MCH 31.7 pg (26.0-34.0); MCHC 34.7 g/dL (31.0-37.0); MCV 91.3 fL (80.0-100.0); MEAN PLATELET VOLUME 10.1 fL (7.4-10.4); MONOCYTES 5.3 % (2-11); NEUTROPHILS 59.8 % (40-80); RBC 4.01 10x6/uL (4.20-6.10); RDW 13.9 % (11.5-14.5); WBC 4.9 10x3/uL (4.8-10.8)
[2018-03-01 19:27] LABS: ALBUMIN 3.4 g/dL (3.4-5.0); ALKALINE PHOSPHATASE 156 U/L (46-116); ALT (SGPT) 59 U/L (10-68); C-REACTIVE PROTEIN 0.5 mg/dL (0.0-0.9); CALC OSMOLALITY 280 mosm/kg (275-300); CALCIUM 8.7 mg/dL (8.5-10.1); CARBON DIOXIDE 25.2 mmol/L (21.0-32.0); CHLORIDE - SERUM 104 mmol/L (98-107); PLATELET COUNT 159 10x3/uL (130-400); POTASSIUM - SERUM 4.3 mmol/L (3.5-5.1); PROTEIN - SERUM 7.1 g/dL (6.4-8.2); SODIUM 139 mmol/L (136-145); UREA NITROGEN 16 mg/dL (7-18); eGFR NON AFRICAN AMERICAN 78 mL/min (90-120)
[2018-03-01 19:31] LABS: GLUCOSE 138 mg/dL (74-106)
[2018-03-01 19:46] VITALS: BP 136/53
[2018-03-01 20:30] LABS: ERYTHROCYTE SEDIMENTATION RATE 15 mm/hr (0-20)
[2018-03-01 21:55] VITALS: BP 147/62; Ht 185.4 cm; Wt 75.1 kg
[2018-03-02] VITALS: BP 120/49
[2018-03-02 04:00] VITALS: BP 129/59
[2018-03-02 08:30] VITALS: BP 107/39
[2018-03-02 14:02] VITALS: BP 121/48
[2018-03-02 18:10] VITALS: BP 133/59
[2018-03-02 20:22] VITALS: BP 123/47
[2018-03-03 01:06] VITALS: BP 107/43
[2018-03-03 05:17] VITALS: BP 124/54
[2018-03-03 08:16] VITALS: BP 106/48
[2018-03-03 12:33] VITALS: BP 118/52
== END 2018-03-03 18:00 | disposition home or self-care (01) ==
LOC: D.ER 16:01 → D.EDHOLD 19:46 → OBSVTIME 20:02 → D.MS 20:36
PROVIDERS: Emergency Medicine
DX: M53.3 Sacrococcygeal disorders, not elsewhere classified (principal); I10 Essential (primary) hypertension; G62.9 Polyneuropathy, unspecified; Z95.1 Presence of aortocoronary bypass graft; Z95.5 Presence of coronary angioplasty implant and graft; F17.210 Nicotine dependence, cigarettes, uncomplicated

== ENCOUNTER → 2018-04-21 10:09 | Outpatient (CLI) | payer MEDICARE, OTHER ==
[2018-03-01 21:55] VITALS: BMI 21.8
== END | disposition home or self-care (01) ==
LOC: D.CT 10:09
DX: I71.4 Abdominal aortic aneurysm, without rupture (principal)

== ENCOUNTER → 2019-04-28 13:40 | Outpatient (CLI) | payer MEDICARE, OTHER ==
[2018-03-01 21:55] VITALS: BMI 21.8
== END | disposition home or self-care (01) ==
LOC: D.CT 13:40
PROVIDERS: ATTEND Internal Medicine Cardiovascular Disease
DX: I35.9 Nonrheumatic aortic valve disorder, unspecified (principal); I71.4 Abdominal aortic aneurysm, without rupture

== ENCOUNTER 2020-01-10 20:21 | Inpatient (IN) | payer MEDICARE, OTHER ==
[~2020-01-10] VITALS: Ht 185.4 cm; Wt 76.2 kg
--- NOTE | ~2020-01-10 | HEMODYNAMI ---
PATIENT:CARL FLORES MEDICAL RECORD: [id number] : 43 [facility] ADMISSION DATE: 01/10/20 Generatedon:01/11/202012:34 Patient name: CARL FLORES Patient #: [id number] SSN: D OB: 1945 Date of study: 01/11/2020 Page: Of Hemodynamic Procedure Report Patient Data Patient Demographics Procedure consent was obtained First Name: CARL Gender: Male Last Name: SANDRA : 1945 Middle Initial: D Age: 74 year(s) Patient #: [id number] Race: Additional ID: [id number] Contact details Address: [address] [place] [address] State: [place] City: [place] Zip code: [address] Past Medical History History of disease Date Diagnosis Comments CAD Peripheral vascular disease Allergies Allergen Reaction Date Comments Reported Other allergy 08/13/2014 Lisinopril Iodine 12/31/2014 Contrast 07/03/2016 IV contrast dye 06/13/2017 Other allergy 06/13/2017 lisinopril Other allergy 01/11/2020 IODINATED CONTRAST MEDIA/LISINOPRIO Admission Admission Data Admission Date: 01/10/2020 Admission Time: 22:07 Room #: D.2124 Height (in.): 73 BSA: 2 (m2) Height (cm.): 185.42 BMI: 22.3 (kg/m2) Weight (lbs.): 169 Weight (kg.): 76.66 Lab Results Lab Result Date: 01/11/2020 Lab Result Time: 0:00 Biochemistry Name Units Result Min Max BUN mg/dl 18 --(---*)-- 7 18 CK-MB ng/ml 1 --(-*--)-- 0 3.6 Creatinine mg/dl 1.1 --(--*-)-- 0.6 1.3 eGFR ml/min 69 *-(----)-- 90 120 NONAFRICAN Troponin l ng/ml 0.017 --(-*--)-- 0 0.06 CBC Name Units Result Min Max Hematocrit % 34.5 *-(----)-- 42 54 Hemoglobin g/dl 11.4 *-(----)-- 13.5 17.5 Procedure Procedure Types Cath Procedure Diagnostic Procedure [facility] Coronaries w/Grafts Procedure Description Procedure Date Procedure Date: 01/11/2020 Procedure Start Time: 12:21 Procedure End Time: 12:32 Procedure Staff Name Function Timmy Bella MD Performing Physician Amada Campo RT Monitor Phyllis Fox RN Nurse April James RT Scrub Procedure Data Cath Procedure Fluoroscopy Diagnostic fluoroscopy Total fluoroscopy Time: 2.4 time: 2.4 min min Diagnostic fluoroscopy Total fluoroscopy dose: 273 dose: 273 mGy mGy Contrast Material Contrast Material Type Amount (ml) Isovue 300 52 Entry Location Entry Primary Successful Side Size Upsize Upsize Entry Closure Succes sful Closure Location (Fr) 1 (Fr) 2 (Fr) Remarks Device Remarks Femoral Left 5 Fr Exoseal artery Estimated blood loss: 5 ml Diagnostic catheters Device Type Used For End Catheter Placement MULTIPACK JL 4.0 5Fr catheter MULTIPACK 3DRC 5Fr Right Coronary catheter Angiography Procedure Complications No complications Procedure Medications Medication Administration Route Dosage Oxygen etCO2 Nasal cannula 2 l/min Lidocaine 2% added to field 20 Heparin Flush Bag added to field 2 bags (1000units/500ml NS) 0.9% NaCl I.V. 100 ml/hr Versed I.V. 1 mg Fentanyl I.V. 50 mcg Versed I.V. 1 mg Fentanyl I.V. 50 mcg Hemodynamics Rest BSA: 2 (m2) HGB: 11.4 (g/dl) O2 Consumption: Estimated: 238.52 (ml/min) O2 Consu mption indexed: Estimated:119.26 (ml/min/m) Heart Rate: 81 (bpm) Snapshots Pre Cath Intra NCS Post Cath Vital Signs Time Heart Resp SPO2 etCO2 NIBP (mmHg) Rhythm Pain Sedation Rate (ipm) (%) (mmHg) Status Level (bpm) 11:56:29 79 16 97 0 138/78(105) NSR 0 (11) 10(A) , No pain 12:00:39 72 9 99 28.6 140/79(111) NSR 0 (11) 10(A) , No pain 12:04:49 74 25 99 22.6 137/78(105) NSR 0 (11) 10(A) , No pain 12:08:57 63 20 99 28.6 141/82(121) NSR 0 (11) 10(A) , No pain 12:13:07 79 11 99 23.3 127/78(99) NSR 0 (11) 10(A) , No pain 12:17:12 78 21 98 18 127/74(93) NSR 0 (11) 10(A) , No pain 12:21:18 80 16 98 26.3 128/80(99) NSR 0 (11) 10(A) , No pain 12:25:26 83 16 97 12.8 125/71(91) NSR 0 (11) 9(A) , No pain 12:29:34 84 13 96 22.6 126/70(92) NSR 0 (11) 9(A) , No pain 12:32:01 81 12 97 27.1 123/78(98) NSR 0 (11) 10(A) , No pain Medications Time Medication Route Dose Verified Delivered Reason Notes Eff ectiveness by by 11:58:10 Oxygen etCO2 2 Timmy Katarinaie used for Nasal l/min St Bunny Fox RN procedure cannula 11:58:17 Lidocaine 2% added 20ml Timmy Timmy for local to vial [facility] anesthetic field MD CATALAN 11:58:23 Heparin Flush added 2 Timmy Timmy used for Bag to bags [facility] procedure (1000units/500ml field MD CATALAN NS) 11:58:31 0.9% NaCl I.V. 100 Timmy Katarinaie Per ml/hr St Bunny Fox RN physician 12:21:18 Versed I.V. 1 mg Timmy Katarinaie for St Bunny Fox RN sedation 12:21:23 Fentanyl I.V. 50 Timmy Katarinaie for mcg [address] Bunny Fox RN sedation 12:25:26 Versed I.V. 1 [address] Buffie for [facility] Bunny Fox RN sedation 12:25:32 Fentanyl I.V. 50 Tim[address]arinaie for mcg [address] Bunny Fox RN sedation Procedure Log Time Note 11:29:46 Informed consent obtained and on chart 11:30:43 Procedure Status Urgent Heart Cath (IP). 11:30:46 Time tracking: Regular hours (M-F 7:00 - 5:00) 11:31:40 Patient allergic to Other allergyIODINATED CONTRAST MEDIA/LISINOPRIO 11:31:50 Plan of Care:Hemodynamics will remain stable., Cardiac rhythm will remain stable., Comfort level will be maintained., Respiratory function will remain adequate., Patient/ family verbilizes understanding of procedure., Procedure tolerated without complication., Recovers from procedure without complications.. 11:32:15 Patient Height : 73 inches 11:32:28 Patient Weight : 169 lbs 11::58 Lab Result : CK-MB 1 ng/ml 11::58 Lab Result : Troponin l 0.017 ng/ml ::58 Lab Result : BUN 18 mg/dl :58 Lab Result : Creatinine 1.1 mg/dl ::58 Lab Result : Hematocrit 34.5 % :58 Lab Result : Hemoglobin 11.4 g/dl ::58 Lab Result : eGFR NONAFRICAN 69 ml/min 11:34:18 H&P Date Dictated: 01/11/2020 Within 30 days and on chart., ER History on chart.. 11:34:29 Amada Campo RT(R) (CV) sent for patient. Start room use. 11:43:29 Is the patient allergic to Iodine/contrast media? Yes. 11:43:32 Was the patient premedicated? Yes 11:45:38 Patient received from Med II to CCL 2 Alert and oriented. Tansferred to table in Supine position. 11:45:39 Warm blankets applied, and karihsma hugger turned on for patient comfort. 11:45:40 Correct patient and procedure confirmed by team. 11:45:41 ECG and BP/O2 sat monitors applied to patient. 11:55:24 Vital chart was started 11:55:25 Baseline sample Acquired. 11:55:29 Rhythm: sinus rhythm 11:55:31 Full Disclosure recording started 11:55:32 Pre-procedure instructions explained to patient. 11:55:33 Pre-op teaching completed and patient verbalized understanding. 11:55:36 Family in patients room. 11:55:40 Patient NPO since Midnight. 11:55:54 Is patient on blood thinner?Yes 11:55:59 ACC The patient was administered the following blood thiners within the last 24 hours: ACCEffient 11:56:02 Patient diabetic? No. 11:56:04 ----Pre-sedation anethsthesia assessment.---- 11:56:09 Previous problem with sedation/anesthesia? No ? 11:56:11 Snore? Yes 11:56:13 Sleep apnea? No 11:56:16 Deviated septum? Unknown 11:56:18 Opens mouth fully? Yes 11:56:20 Sticks out tongue? Yes 11:56:27 Airway obstruction? No ? 11:56:34 Dentures? Yes IN TIGHT 11:56:43 Pre procedure: right dorsailis pedis pulse 1+ Palpable, but thready & weak; easily obliterated 11:56:55 IV patent on arrival in left forearm with 0.9% NaCl at [facility]. 11:57:00 Lab results completed and on chart. 11:57:06 Bilateral groins area was prepped with chlora-prep and draped in sterile fashion 11:57:09 Alarms reviewed by R. N. 11:57:09 Sharps counted by scrub and verified by R.N. 11:57:15 Use device set Femoral Dx 11:57:17 ACIST Syringe (72231) opened to sterile field. 11:57:17 Bag Decanter (2002S) opened to sterile field. 11:57:19 Medline Cath Pack ([id number]) opened to sterile field. 11:57:21 ACIST Hand Control (48062) opened to sterile field. 11:57:22 ACIST Manifold (13280) opened to sterile field. 11:57:23 DIAGNOSTIC Multipack 5Fr catheter set (TM7760) opened to sterile field. 11:57:24 Tegaderm 4 x 4 (1626W) opened to sterile field. 11:57:27 SHEATH 5FR [place] (DQS144) opened to sterile field. 11:57:28 EMERALD Guide Wire (464-639) opened to sterile field. 11:58:10 Oxygen 2 l/min etCO2 Nasal cannula was administered by Phyllis Fox RN; used for procedure; Verbal order read back and verified. 11:58:17 Lidocaine 2% 20ml vial added to field was administered by Timmy Bella MD; for local anesthetic; Verbal order read back and verified. 11:58:23 Heparin Flush Bag (1000units/500ml NS) 2 bags added to field was administered by Timmy Bella MD; used for procedure; Verbal order read back and verified. 11:58:31 0.9% NaCl 100 ml/hr I.V. was administered by Phyllis Fox RN; Per physician; Verbal order read back and verified. 12:05:59 Zero performed for pressure channel P1 12:19:05 Risk of Mortality: 0.4 12:19:11 Risk of blood transfusion: 4.7 12:19:15 Risk of MARIOLA: 3.1 12:19:35 Physician arrived 12::41 --------ALL STOP TIME OUT------ ::41 Final Timeout: patient, procedure, and site verified with staff and physician. All members of the team are in agreement. 12:19:43 Bilateral groins site verified by team. 12:19:48 Fire Safety Assessment: A--An alcohol-based skin anteseptic being used preoperatively., C--Open oxygen or nitrous oxide is being used., D--An ESU, laser, or fiber-optic light is being used. 12:19:54 Physical assessment completed. ASA score P 2 - A patient with mild systemic disease as per Timmy Bella MD. 12:20:01 2) 60-89 Mildly reduced kidney function, and other findings (as for stage 1) point to kidney disease. 12:20:09 Maximum allowable contrast dose (3.7 X eGFR X 0.75)191 ml. 12:21:03 Sedation plan: IV Moderate Sedation Medication:Versed, Fentanyl 12:21:09 Procedure started. 12:21:16 Local anesthetic to left femerol artery with Lidocaine 2% by Timmy Bella MD.INITIAL ACCESS ONLY 12:21:18 Versed 1 mg I.V. was administered by Phyllis Fox RN; for sedation; Verbal order read back and verified. 12::23 Fentanyl 50 mcg I.V. was administered by Phyllis Fox RN; for sedation; Verbal order read back and verified. 12:21:38 Zero performed for pressure channel P1 12:23:12 A 5 Fr sheath was inserted into the Left Femoral artery 12:23:38 A MULTIPACK JL 4.0 5Fr catheter was advanced over the wire and used for . 12:24:35 LCA angiography performed. 12::44 Injector settings: Ml/sec: 3, Volume: 6, 12:: Versed 1 mg I.V. was administered by Phyllis Fox RN; for sedation; Verbal order read back and verified. 12::28 Catheter exchanged over wire. 12::32 Fentanyl 50 mcg I.V. was administered by Phyllis Fox RN; for sedation; Verbal order read back and verified. 12::52 A MULTIPACK 3DRC 5Fr catheter was advanced over the wire and used for Right Coronary Angiography. 12::34 RCA angiography performed. 12::38 Injector settings: Ml/sec: 3, Volume: 6, 12:27:24 WERNER to LAD angiography performed. 12::32 Injector settings: Ml/sec: 3, Volume: 6, 12::53 Catheter removed. 12::59 EXOSEAL 5Fr (EX500) opened to sterile field. 12:: Sheath removed intact; hemostasis achieved with Exoseal to the Left Femoral artery. 12::31 Procedure ended.(Physican Out) 12::38 Contrast amount:Isovue 300 52ml. 12::45 Fluoroscopy time 02.40 minutes. 12::54 Flurop Dose total: 273 12::54 Fluoroscopy dose: 273 mGy 12:: Dose Area Product 08625 mGy/cm. 12:29:05 Maximum allowable dose exceeded? No. 12:29:07 Sharps counted by scrub and verified by R.N. 12:29:15 Post-op/insertion site Left Femoral artery dressed using a 4 x 4 and Tegaderm. 12:29:22 Post left femerol artery:stable 12::31 Post-procedure physical assessment completed. ASA score P 2 - A patient with mild systemic disease as per Timmy Bella MD. 12::35 Post procedure rhythm: unchanged. 12::39 Estimated blood loss: 5 ml 12::40 Post procedure instruction explained to patient.Patient verbalizes understanding. 12::41 Patient needs reinforcement of post procedure teaching. 12:: Procedure type changed to Cath procedure, Diagnostic procedure, LHC, Coronaries w/Grafts 12::28 Procedure and supply charges have been captured, reviewed, submitted and are correct. 12:32:28 Procedure Complication : No complications 12:32:33 Vital chart was stopped 12:32:37 [facility] Findings: mild to moderate CAD (<70%) 12:32:38 Operative report dictated upon procedure completion. 12:32:39 See physician's report for complete and final results. 12:32:42 Report given to [facility]. 12:32:48 Patient transfered to [facility] with Bed. 12:32:56 Procedure ended. 12:32:56 Full Disclosure recording stopped Device Usage Item Name Manufacture Quantity Catalog Hospital Part Current Minimal L ot# / Number Charge Number Stock Stock Serial# Code ACIST Acist 1 [id number] 104883 221313 [id number] 20 Syringe Medical (03738) Systems Inc Bag Microtek 1 2001S 398496 71450 378742 5 Decanter Medical Inc. () Medline Medline 1 [id number] 069136 71666 671910 5 Cath Pack ([id number]) ACIST Hand Acist 1 72967 023838 969263 993801 5 Control Medical (04233) Systems Inc ACIST Acist 1 33337 738999 653105 170395 5 Manifold Medical (11029) Systems Inc DIAGNOSTIC Cardinal 1 [id number] 297391 76904 113849 30 Multipack Health 5Fr catheter set (UD9080) Tegaderm 4 3M 1 1626W 234819 787382 372143 5 x 4 (1626W) SHEATH 5FR Terumo 1 GPI627 802534 871450 844594 5 [place] (JLD958) EMERALD Cardinal 1 502-455 564632 077551 060916 5 Guide Wire [facility] (502-455) MULTIPACK Cardinal 1 256433 5 JL 4.0 5Fr Health catheter MULTIPACK Cardinal 1 464964 5 3DRC 5Fr Health catheter EXOSEAL 5Fr Cardinal 1 EX500 644846 810777 528886 10 (EX500) Health Signature Audit [place] Stage Time Signature Unsigned Intra-Procedure 01/11/2020 Amada 12:33:29 PM Alber RT(R) (CV) Intra-Procedure 01/11/2020 Phyllis Fox RN 12:34:04 PM Intra-Procedure 01/11/2020 Timmy Mancilla 12:34:29 PM Bunny CATALAN Signatures Performing Physician : Signature : Timmy Bella MD Date : Time : Monitor : Amada Signature : Nannemann RT Date : Time : Nurse : Buffie Fox RN Signature : Date : Time : [address] [place] [address]
[2020-01-10 20:44] LABS: BASOPHILS 0.6 % (0-2); EOSINOPHILS 4.5 % (0-7); HEMATOCRIT 39.3 % (42.0-54.0); HEMOGLOBIN 13.7 g/dL (13.5-17.5); IMMATURE GRANULOCYTES 0.2 % (0-5); LYMPHOCYTES 55.1 % (15-50); MCH 31.8 pg (26.0-34.0); MCHC 34.9 g/dL (31.0-37.0); MCV 91.2 fL (80.0-100.0); MEAN PLATELET VOLUME 9.8 fL (7.4-10.4); MONOCYTES 8.1 % (2-11); NEUTROPHILS 31.5 % (40-80); PLATELET COUNT 162 10x3/uL (130-400); RBC 4.31 10x6/uL (4.20-6.10); RDW 14.2 % (11.5-14.5); WBC 5.1 10x3/uL (4.8-10.8)
[2020-01-10 21:01] LABS: APTT 34.2 SECONDS (22.8-39.4); INR 1.02 (0.85-1.17); PROTIME 13.3 SECONDS (11.6-15.0)
[2020-01-10 21:06] LABS: CALC OSMOLALITY 279 mosm/kg (275-300); CALCIUM 8.6 mg/dL (8.5-10.1); CHLORIDE - SERUM 105 mmol/L (98-107); CREATININE - SERUM 1.1 mg/dL (0.6-1.3); GLUCOSE 125 mg/dL (74-106); POTASSIUM - SERUM 4.6 mmol/L (3.5-5.1); SODIUM 139 mmol/L (136-145); UREA NITROGEN 16 mg/dL (7-18); eGFR NON AFRICAN AMERICAN 69 mL/min (90-120)
[2020-01-10 21:24] LABS: ALBUMIN 3.5 g/dL (3.4-5.0); ALKALINE PHOSPHATASE 107 U/L (30-120); ALT (SGPT) 17 U/L (10-68); BILIRUBIN - TOTAL 0.42 mg/dL (0.2-1.3); CKMB 0.4 U/L (0.0-3.6); CREATINE KINASE 80 UL (21-232); PROTEIN - SERUM 7.2 g/dL (6.4-8.2)
[2020-01-10 21:25] LABS: TROPONIN-I < 0.017 ng/mL (0.000-0.060)
[2020-01-10 22:00] VITALS: BP 138/77
[2020-01-11 00:33] VITALS: BP 116/51; BMI 22.2
--- NOTE | 2020-01-11 00:52 | NUR ---
RECEIVED REPORT FROM GAUTAM FOUNTAIN IN ER. ARRIVED TO FLOOR ON STRETCHER. ALERT AND ORIENTED X4. UP AD NAHUN TO B/R. SPOUSE AT BEDSIDE. ASSESSMENT COMPLATED.
[2020-01-11 04:30] VITALS: BP 85/72
[2020-01-11 04:49] LABS: HEMATOCRIT 34.5 % (42.0-54.0); HEMOGLOBIN 11.4 g/dL (13.5-17.5); MCH 30.3 pg (26.0-34.0); MCV 91.8 fL (80.0-100.0); PLATELET COUNT 132 10x3/uL (130-400); RBC 3.76 10x6/uL (4.20-6.10); RDW 14.3 % (11.5-14.5); WBC 4.1 10x3/uL (4.8-10.8)
[2020-01-11 05:31] LABS: CALC OSMOLALITY 288 mosm/kg (275-300); CALCIUM 8.1 mg/dL (8.5-10.1); CARBON DIOXIDE 30.7 mmol/L (21.0-32.0); CHLORIDE - SERUM 107 mmol/L (98-107); CREATINE KINASE 63 UL (21-232); CREATININE - SERUM 1.1 mg/dL (0.6-1.3); GLUCOSE 100 mg/dL (74-106); POTASSIUM - SERUM 4.1 mmol/L (3.5-5.1); SODIUM 144 mmol/L (136-145); UREA NITROGEN 18 mg/dL (7-18); eGFR NON AFRICAN AMERICAN 69 mL/min (90-120)
[2020-01-11 05:33] LABS: TROPONIN-I < 0.017 ng/mL (0.000-0.060)
--- NOTE | 2020-01-11 07:15 | NUR ---
RECEIVED PT IN BED AAOX 4 RESP UNLABORED SKIN W/D COLOR WNL NAD NOTED
[2020-01-11 09:41] LABS: CHOL - HDL RATIO 5.2 ratio (2.3-4.9); LDL-HDL RATIO 3.9 ratio (1.5-3.5)
[2020-01-11 10:22] VITALS: BP 103/44
[2020-01-11 12:46] LABS: EOSINOPHILS 7 % (0-7); LYMPHOCYTES 50 % (15-50); MONOCYTES 6 % (2-11); NEUTROPHILS 37 % (40-80); PLATELET ESTIMATE NORMAL; ROULEAUX OCC
[2020-01-11 13:08] VITALS: Ht 185.4 cm; Wt 76.2 kg
--- NOTE | 2020-01-12 13:36 | CN ---
PATIENT NAME:CARL FLORES MEDICAL RECORD: [id number] : 43 LOCATION:[facility] D.2124 ADMIT DATE: 01/10/20 ACCOUNT: [id number] CONSULTING PHYSICIAN: JOSÉ MIGUEL TRAMMELL MD REFERRING PHYSICIAN: SANDY BRUNSON MD DATE OF CONSULTATION: 01/11/2020 HISTORY OF PRESENT ILLNESS: A 74-year-old gentleman with a known history of coronary artery disease, status post coronary artery bypass grafting, about a 2-week history of progressive, worsening steadily chest sinus pressure with exertion. reports initially out working in the yard, now with minimal exertion, had rest symptomatology yesterday, relieved with nitroglycerin, presented to the ER. Has known history of coronary artery disease as described above, been quite stable up until the last couple of weeks, again rapidly progressing. We are asked to see him concerning his cardiovascular status. PAST MEDICAL HISTORY: Includes: 1. History of hypertension. 2. Coronary artery disease as described above. 3. Peripheral vascular disease, status post intervention via Dr. Valiente to the left iliac. SOCIAL HISTORY: Nonsmoker, nondrinker. He takes care of all his ADLs. Does try to walk on a regular basis. ALLERGIES: CONTRAST. MEDICATIONS: Include Effient 10 mg p.o. q. day, amlodipine 5 mg p.o. q. day, aspirin 81 q. day. REVIEW OF SYSTEMS: The patient reports easy bruising but reports no swollen glands. The patient reports no fever, no night sweats, no significant weight gain, no significant weight loss. No significant exercise tolerance. The patient reports no dry eyes, no irritation, no vision change. Patient reports no difficulty hearing and no ear pain. Patient reports no frequent nose bleeds or nose and sinus problems. Patient reports no arm pain on exertion. No shortness of breath while lying down. No history of heart murmur. Patient reports no cough, no wheezing or coughing up blood. Patient reports no abdominal pain, no vomiting. Normal appetite. No diarrhea and not vomiting blood. No nausea and no constipation. Patient reports no incontinence. No difficulty urinating. No hematuria. No increased frequency. Patient reports no muscle aches. No weakness, no arthralgias, no back pain. No swelling of the extremities. Patient reports no abnormal mole, no jaundice, no rashes. Reports no loss of consciousness. No weakness and no numbness. No seizures, dizziness, or headaches. The patient reports no depression, no sleep disturbance, feeling safe in a relationship and no alcohol abuse. Patient reports no fatigue. Reports no runny nose or sinus pressure. No itching, no hives, and no frequent sneezing. PHYSICAL EXAMINATION: GENERAL: Pleasant, in no acute distress, appears stated age. VITAL SIGNS: 116/51, pulse 56 and regular. HEENT: Normocephalic, atraumatic. NECK: No bruits are noted. HEART: Regular. II/ systolic ejection murmur. CONSULT REPORT [id number] CARL FLORES LUNGS: Good air excursion. ABDOMEN: Soft, nontender. EXTREMITIES: Pulses 2+ with no edema. IMPRESSION: Acute coronary syndrome. Known history of coronary artery disease, status post intervention and bypass grafting. PLAN: For angiography, intervention based on above. NTS:[id number] Voice Confirmation ID: [id number] DOCUMENT ID: [id number] JOSÉ MIGUEL TRAMMELL MD at 1336 CC: [id number] DICTATION DATE: 01/11/20912 SOLAR PV INSTALLER: 01/11/201921 DIS IN 01/11/[address] [facility] [address] [place] [address]
--- NOTE | 2020-01-12 13:36 | OP ---
PATIENT NAME: CARL FLORES MEDICAL RECORD: [id number] :43 LOCATION:D.M2 D.4 ADMISSION DATE:01/10/20 SURGEON: JOSÉ MIGUEL TRAMMELL MD DATE OF OPERATION: 01/11/2020 PROCEDURE: Left heart catheterization, selective coronary angiography, left femoral artery approach. CATHETERS: A 5-Honduran sheath, 5/4 left and right Cedric, 5/4 pig. The procedure was well tolerated. The patient returned to prieto. Sheath was removed. 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 CORONARY ANATOMY: LEFT MAIN: Left main is free of disease. LAD: LAD fills for a short period of time and is seen filling via competitive flow. CIRCUMFLEX: Free of disease. RIGHT CORONARY ARTERY: Dominant artery, free of disease. WERNER TO LAD: Is widely patent throughout its course without evidence of post-anastomotic stenosis. IMPRESSION: Patent left internal mammary artery. No obstructive coronary artery disease of the circ, right. TRANSINT:[id number] Voice Confirmation ID: [id number] DOCUMENT ID: [id number] JOSÉ MIGUEL TRAMMELL MD at 1336 CC: [id number] DICTATION DATE: 01/11/20 1236 BRIQUETTE MACHINE OPERATOR HELPER: 01/11/20 215 DIS IN 01/11/20 [facility] [id number] [place] [address]
== END 2020-01-11 17:00 | disposition home or self-care (01) | DRG 287 ==
LOC: D.ER 20:21 → D.M2 22:07
PROVIDERS: Family Medicine; Internal Medicine Interventional Cardiology; ADMIT Family Medicine; ATTEND Family Medicine
PROC: B2151ZZ Fluoroscopy of Left Heart using Low Osmolar Contrast (ICD-10-PCS; 2020-01-11)
PROC: 4A023N7 Measurement of Cardiac Sampling and Pressure, Left Heart, Percutaneous Approach (ICD-10-PCS; 2020-01-11)
PROC: B2111ZZ Fluoroscopy of Multiple Coronary Arteries using Low Osmolar Contrast (ICD-10-PCS; principal; 2020-01-11 11:34)
DX: I25.119 Atherosclerotic heart disease of native coronary artery with unspecified angina pectoris (principal); I24.9 Acute ischemic heart disease, unspecified; F17.203 Nicotine dependence unspecified, with withdrawal; I10 Essential (primary) hypertension; I73.9 Peripheral vascular disease, unspecified; E78.5 Hyperlipidemia, unspecified